=== PATIENT | female | born 1995 | race American Indian/Alaskan Native ===

== ENCOUNTER 2017-10-22 14:10 | Emergency (ER) | payer SELFPAY ==
[2017-10-22 16:08] VITALS: BP 139/85
--- NOTE | 2017-10-22 16:41 | XRay Report ---
FINAL REPORT PROCEDURE: Left foot. TECHNIQUE: Three views. HISTORY: Left foot injury with pain. COMPARISON: No prior studies are available for comparison. FINDINGS: The bones appear intact without fracture or dislocation. The joint spaces appear normal. The soft tissues are unremarkable. IMPRESSION: Normal study.
[2017-10-23] MEDS ORDERED: NORCO 7.5/325 PO ONE (01:18)
[2017-10-23] MEDS ORDERED: MOTRIN PO ONE (01:18)
--- NOTE | 2017-10-23 01:18 | Emergency Department Report ---
ED Lower Extremity HPI - General Chief Complaint: Extremity Injury, Lower Stated Complaint: L FOOT PAIN Time Seen by Provider: 10/23/17 00:08 Source: patient, family Mode of arrival: Ambulatory Limitations: No Limitations - History of Present Illness Initial Comments: Patient airport that she fell on 10/13/2017 with left foot and ankle pain since then. Patient said she has pain to her left foot and ankle and swelling to her left foot at 10 out of 10 8 in. Denies any numbness or tingling. Denies any other injury away from left foot and ankle. She says she took [id number] pain medication but is not helping. No medical follow-up after falling until today. Denies any radiation of pain up her leg. MD Complaint: ankle injury, foot injury, fall Onset/Timin -: days(s) Injury: Ankle: Left (pain), Foot: Left (pain and swelling) Type of Injury: other (fall) Place: street/outdoors Severity: severe Severity scale (0 -10): 10 Improves With: immobilization, rest Worsens With: weight bearing, movement, palpation Context: fall Associated Symptoms: swelling, ambulatory. denies: snap/pop sensation, numbness , tingling, unable to bear weight, able to partially bear weight Treatments Prior to Arrival: other (none) - Related Data Previous Rx's Medication Instructions Recorded Last Taken Type Ibuprofen [Motrin 800 MG tab] 800 mg PO Q8H PRN 5 Days #15 tablet 10/23/17 Unknown Rx Allergies Allergy/AdvReac Type Severity Reaction Status Date / Time No Known Allergies Allergy Verified 10/22/17 16:02 ED Review of Systems ROS: Stated complaint: L FOOT PAIN Other details as noted in HPI Comment: All other systems reviewed and negative Constitutional: no symptoms reported Eyes: denies: eye pain ENT: denies: throat pain Respiratory: no symptoms reported Cardiovascular: denies: chest pain, palpitations, dyspnea on exertion, orthopnea , edema, syncope, paroxysmal nocturnal dyspnea Gastrointestinal: denies: abdominal pain, nausea, vomiting, diarrhea, constipation, hematemesis, melena, hematochezia Genitourinary: denies: urgency, dysuria, frequency, hematuria, discharge, abnormal menses, dyspareunia Musculoskeletal: joint swelling, arthralgia. denies: back pain, myalgia Skin: denies: rash Neurological: denies: headache, weakness, numbness, paresthesias, confusion, abnormal gait, vertigo ED Past Medical Hx - Past Medical History Previous Medical History?: No - Surgical History Past Surgical History?: No - Family History Family history: no significant - Social History Smoking Status: Never Smoker Substance Use Type: None - Medications Home Medications: Home Medications Medication Instructions Recorded Confirmed Last Taken Type Ibuprofen [Motrin 800 MG tab] 800 mg PO Q8H PRN 5 Days #15 tablet 10/23/17 Unknown Rx ED Physical Exam - General Limitations: No Limitations General appearance: alert, in no apparent distress - Head Head exam: Present: atraumatic, normocephalic, normal inspection - Eye Eye exam: Present: normal appearance, PERRL, EOMI Pupils: Present: normal accommodation - ENT ENT exam: Present: normal exam, normal orophraynx, mucous membranes moist - Neck Neck exam: Present: normal inspection, full ROM, other (no C-spine tenderness). Absent: tenderness, meningismus, lymphadenopathy, thyromegaly - Respiratory Respiratory exam: Absent: respiratory distress, wheezes, rales, rhonchi, stridor , chest wall tenderness, accessory muscle use, decreased breath sounds, prolonged expiratory - Cardiovascular Cardiovascular Exam: Present: regular rate, normal rhythm, normal heart sounds. Absent: systolic murmur, diastolic murmur - Extremities Exam Extremities exam: Present: full ROM, tenderness (tenderness to palpate to left foot with very minimal swelling. No swelling noted to left ankle), normal capillary refill, pedal edema, other (+2 pulses in all extremities, no clubbing or cyanosis. Mild swelling to left foot Otherwise no swelling to other extremities.). Absent: normal inspection, joint swelling, calf tenderness - Expanded Lower Extremity Exam Left Hip exam: Present: normal inspection, full ROM, pelvic stability. Absent: tenderness, swelling, abrasion, laceration, ecchymosis, deformity, crepidus, dislocation, erythema, external rotation, internal rotation, shortening Upper Leg exam: Present: normal inspection, full ROM. Absent: tenderness, swelling, abrasion, laceration, ecchymosis, deformity, crepidus, dislocation, erythema Knee exam: Present: normal inspection, full ROM, full knee extension. Absent: tenderness, swelling, abrasion, laceration, ecchymosis, deformity, crepidus, dislocation, erythema, effusion, pain w/ pronation/supination, posterior draw sign, pain/laxity with valgus, pain/laxity with varus Lower Leg exam: Present: normal inspection, full ROM. Absent: tenderness, swelling, abrasion, laceration, ecchymosis, deformity, crepidus, dislocation, erythema, palpable cord, Milan's sign Ankle exam: Present: normal inspection, full ROM. Absent: tenderness, swelling , abrasion, laceration, ecchymosis, deformity, crepidus, dislocation, erythema, anterior draw sign Foot/Toe exam: Present: full ROM, tenderness (dorsal aspect of foot), swelling ( minimal swollen left foot). Absent: normal inspection, abrasion, laceration, ecchymosis, deformity, crepidus, dislocation, erythema, amputation, puncture wound, foreign body, calcaneal tenderness, tenderness at base of 5th metatarsal , nail avulsion, subungual hematoma Neuro vascular tendon exam: Present: no vascular compromise. Absent: pulse deficit, abnormal cap refill, motor deficit, sensory deficit, tendon deficit, extremity cold to touch, pallor, abnormal 2-point discrimination, decreased fine /light touch, foot drop, peroneal nerve deficit, significant pain with passive ROM of distal joint Gait: Positive: observed and limited by pain - Back Exam Back exam: Present: normal inspection, full ROM. Absent: tenderness, CVA tenderness (R), CVA tenderness (L), muscle spasm, paraspinal tenderness, vertebral tenderness, rash noted - Neurological Exam Neurological exam: Present: alert, oriented X3, normal gait, reflexes normal. Absent: motor sensory deficit - Psychiatric Psychiatric exam: Present: normal affect, normal mood - Skin Skin exam: Present: warm, dry, intact, normal color. Absent: rash ED Course Vital Signs 10/22/17 16:02 Temperature 98.6 F Pulse Rate 84 Respiratory 18 Rate Blood Pressure 139/85 O2 Sat by Pulse 96 Oximetry - Reevaluation(s) Reevaluation #1: 10/23/17 01:33 Patient given Dolph 7.5/325 mg by mouth and Motrin 800 mg by mouth in emergency room for mild foot sprain. - Orthopedic Splinting/Casting Injury #1 Side: left Lower Extremity Injury Location: foot Lower Extremity Immobilizer: Woo wrap Additional Comments: Neurovascular check is intact. ED Lower Extremity MDM - Radiology Data Radiology results: report reviewed X-ray of left foot reveal no acute fracture dislocation. No mention of soft tissue swelling. - Medical Decision Making ED course: Patient here reports that she fell and twisted her foot and ankle 9 days ago. This is her initial check after injury. Physical findings for minimal swelling to left foot and tender to palpate the left foot. No limitation in movement. Left ankle normal exam. Patient said her pain was 10 out of 10 and I gave her Dolph 7.5/325 mg and Motrin 800 mg when necessary emergency room. Please refer to procedure note for splint in detail. Rice protocol explained to patient. Patient voiced understanding of discharge instruction and treatment plan and discharged home in stable condition with prescription for Motrin and to follow-up with orthopedic doctor in 2-3 days. I instructed her on her x-ray results. Critical care attestation.: If time is entered above; I have spent that time in minutes in the direct care of this critically ill patient, excluding procedure time. ED Disposition Clinical Impression: Arthralgia of multiple sites, Obesity, Class III, BMI 40-49.9 (morbid obesity) Sprain of foot, left Qualifiers: Encounter type: initial encounter Qualified Code(s): S93.602A - Unspecified sprain of left foot, initial encounter Disposition: TO HOME OR SELFCARE Is pt being admited?: No Does the pt Need Aspirin: No Condition: Stable Instructions: Arthralgia (ED), Foot Sprain (ED), RICE Therapy (ED), Weight Management (ED), Obesity (ED) Additional Instructions: Please follow up with primary care as recommended Increase fluid intake Take medication as prescribed . Referred to discharge instruction in Rice therapy. Referred to discharge instruction on obesity and weight management These follow-up with orthopedic doctor as instructed. Prescriptions: Ibuprofen [Motrin 800 MG tab] 800 mg PO Q8H PRN 5 Days #15 tablet PRN Reason: Pain Referrals: PRIMARY CAREMD [Primary Care Provider] - 2-3 Days XAVIER GARVEY MD [Staff Physician] - 2-3 Days [facility] [Outside] - 2-3 Days Forms: Work/School Release Form(ED)
== END 2017-10-23 01:50 | disposition home or self-care (01) ==
LOC: ED 14:10
DX: S93.602A Unspecified sprain of left foot, initial encounter (principal); M25.50 Pain in unspecified joint; E66.9 Obesity, unspecified; Z68.42 Body mass index [BMI] 45.0-49.9, adult; W18.30XA Fall on same level, unspecified, initial encounter; Y93.89 Activity, other specified; Y92.89 Other specified places as the place of occurrence of the external cause; Y99.8 Other external cause status
CPT/HCPCS: 99283